=== PATIENT | male | born 1985 | race Caucasian/White ===

== ENCOUNTER 2018-11-11 11:23 | Inpatient (IN) | payer OTHER ==
[~2018-11-11] VITALS: Ht 182.9 cm; Wt 74.8 kg
[~2018-11-11 11:23] MED LIST changes: -Augmentin 875-1 EACH PO; -ERYT1OIN BOTHEYES; -Percocet 5-3251 EACH PO
[2018-11-11] MEDS ORDERED: ERYT1OIN BOTHEYES (13:54)
--- NOTE | 2018-11-11 15:45 | NUR ---
Surgical site prepped with 2% Chlorhexidine cloth wipe. History, Chart, Medications and Allergies reviewed before start of procedure. Lungs clear T/O to Auscultation. Patient confirms NPO status and agrees with scheduled surgery. Pre-Op teaching done. Pt verbalizes understanding.
--- NOTE | 2018-11-11 16:53 | NUR ---
11/11/18 1653 Clifton Aguilar PT ON SCHEDULED ANTIBIOTICS
--- NOTE | 2018-11-11 20:00 | NUR ---
RECEIVED HAND OFF FROM FARIHA WALKER IN PACU USING SBAR. TRANSPORTED TO ROOM VIA HOSPITAL BED. DROWSY, BUT FOLLOWS ALL COMMANDS. ORIENTED TO ROOM, CALL SYSTEM, AND POC, VOICES UNDERSTANDING. RESPIRATIONS EVEN AND UNLABORED ON ROOM AIR. LUNG SOUNDS CLEAR BILATERALLY. ABDOMEN FIRM WITH DISTANT, HYPOACTIVE BOWEL SOUNDS. MIDLINE INCISION COVERED WITH PREVENA DRESSING. LLQ COLOSTOMY. PINK STOMA WITH SMALL AMOUNT OF RED LIQUID IN BAG. CINTRON CATH DRAINING CLEAR YELLOW URINE TO GRAVITY. ORDER NOTED TO REMOVE BY POD # 2. LR ADMINISTERING AT 100ML/HR. SCD'S TO BLE. WILL MEDICATE PAIN OF 5/10 PER EMAR. SAFETY MEASURES IN PLACE. ADMISSION ASSESSMENT IN PROGRESS. SAFETY MEASURES IN PLACE. WILL CONTINUE TO MONITOR.
[2018-11-12 04:55] LABS: BASOPHILS ABSOLUTE AUTO 0.02 K/mm3 (0.00-0.23); BASOPHILS PERCENT AUTO 0 % (0-2); EOSINOPHILS PERCENT AUTO 0 % (0-6); Hematocrit 36.3 % (37.0-53.0); Hemoglobin 11.5 g/dL (13.5-17.5); IMMATURE GRAN ABSOLUTE AUTO 0.11 K/mm3 (0.00-0.10); IMMATURE GRAN PERCENT AUTO 1 % (0-1); LYMPHOCYTES ABSOLUTE AUTO 0.86 K/mm3 (0.84-5.20); LYMPHOCYTES PERCENT AUTO 5 % (21-46); MONOCYTES ABSOLUTE AUTO 0.56 K/mm3 (0.16-1.47); MONOCYTES PERCENT AUTO 3 % (4-13); Mean Corpuscular HGB 29.6 pg (26.0-34.0); Mean Corpuscular HGB Conc 31.7 g/dL (31.5-36.5); Mean Corpuscular Volume 94 fL (80-100); Mean Platelet Volume 11.8 fL (9.1-12.4); NEUTROPHILS ABSOLUTE AUTO 16.69 K/mm3 (1.96-9.15); NEUTROPHILS PERCENT AUTO 92 % (41-73); Platelet Count 146 K/mm3 (150-400); RDW Coefficient Variation 12.1 % (11.7-14.2); RDW Standard Deviation 41.9 fL (35.1-46.3); Red Blood Cell Count 3.88 M/mm3 (4.30-5.90); White Blood Cell Count 18.24 K/mm3 (4.00-11.30)
[2018-11-12 05:28] LABS: Anion Gap 6 mmol/L (6-16); Blood Urea Nitrogen 11 mg/dL (8-24); Bun/Creatinine Ratio 13.8 (12.0-20.0); CO2, Blood 26 mmol/L (21-32); Calcium, Blood 8.2 mg/dL (8.5-10.1); Chloride, Blood 109 mmol/L (98-108); Glomerular Filtration Rate >60 (60-); Glucose, Blood 141 mg/dL (70-99); Potassium, Blood 4.3 mmol/L (3.5-5.5); Sodium, Blood 141 mmol/L (136-145)
--- NOTE | 2018-11-12 06:26 | NUR ---
SHIFT SUMMARY HAS RESTED WELL THIS SHIFT. LYING IN SHIRA FOWLERS WITH EYES CLOSED. PAIN MANAGED. PINK STOMA WITH SMALL AMOUNT OF RED LIQUID NOTED IN OSTOMY BAG TO LLQ. CINTRON CATH DRAINAING CLEAR YELLOW URINE TO GRAVITY. STATES THAT HE IS LLOKING FORWARD TO LEARNING ABOUT HOW TO CARE FOR HIS STOMA AND START HIS NEW LIFE. DENIES NEEDS OR WANTS AT THIS TIME. SAFETY MEASURES IN PLACE. WILL GIVE HAND OFF TO ONCOMING SHIFT USING SBAR.
--- NOTE | 2018-11-12 07:45 | NUR ---
pt reports pain 05/18 to abd pt has scant amt serosang drainage to ostomy stoma is pink and moist no bt's pt stated he has belched but no nausea will get pt an is/ tcdb with demonstation pt currently on will try to wean pt [place] wound vac has no drainage
--- NOTE | 2018-11-12 13:59 | NUR ---
Spiritual care visit conducted. I provided pastoral work counselor, companionship and prayer. Patient and spouse, Sydney responded well.
--- NOTE | 2018-11-12 15:27 | NUR ---
pt oob to chair had some dizziness checked b/p wnl
--- NOTE | 2018-11-12 16:53 | NUR ---
PT STILL SITTING UP IN CHAIR REQ SOME CL
--- NOTE | 2018-11-13 06:02 | NUR ---
POD 2 S/P COLECTOMY/OSTOMY. PT VSS T/O NIGHT. DRESSING CDI. STOMA PINK W/SM AMT SS DRJENNIFER. PAIN MGD PER EMAR W/REP RELIEF. PT LOWELL CLEAR LIQ PO, NO C/O N/V, NO FLATUS YET FROM OSTOMY. PLAN TO D/C CINTRON CATH THIS AM. AMBULATION ENC, PT DOES APPEAR ANXIOUS W/DISCUSSION R/T MOBILITY, EDUCATION CONT PRN. PT SHIFTING SELF IN BED, IS USING CALL LIGHT FOR ASSISTANCE, WILL CONT TO MONITOR UNTIL REP GIVEN TO ONCOMING RN.
--- NOTE | 2018-11-13 17:55 | NUR ---
SHIFT SUMMARY PT IS ANXIOUS AND FEARFUL TO GET OUT OF BED. TOOK ALL DAY OF ENCOURAGEMENT AND POSITIVE REENFORCEMENT TO GET PATIENT TO AMBULATE IN HALLWAY. OSTOMY IS PRODUCING GAS BUT ONLY SCANT AMOUNT (2 TABLESPOONS) OF RED LQ. PAIN WELL CONTROLLED. HELEN WNL.
--- NOTE | 2018-11-14 07:53 | NUR ---
SHIFT SUMMARY POD#3. AAOX4/ANXIOUS AT TIMES. ABD INCISION WITH PREVENA C/D/I. OSTOMY WITH MODERATE AMOUNTS FLATUS THIS SHIFT, PT EDUCATED + EMPTIED OWN OSTOMY OF FLATUS. PT ENCOURAGED TO AMBULATE THIS SHIFT INDEPENDENTLY IN HALLS, AMBULATED X1 EARLY THIS AM FOR 100-150FT WALK, TOLERATED WELL. PAIN CONTROLLED WITH 2 PAIN PILLS Q4-5P. NO NAUSEA/EMESIS. PT SITTING UP THIS AM, AWAITING BREAKFAST + FAMILY VISIT. NADN. CALL LIGHT IN REACH. REPORT TO DAY SHIFT RN.
--- NOTE | 2018-11-14 08:02 | NUR ---
pt awake eating cl pt has gas in ostomy no nausea pain 05/18
--- NOTE | 2018-11-14 12:21 | NUR ---
Patient is sleeping when I enter patient's room but he quickly awakens and asks me to sit. Patient tells me how his recovery is going and about the perspective he has on living with a colostomy bag. I normalize patient's experience, reinforce helpful attitudes and practices and provide prayer. Patient responds well and shows signs of an elevated mood.
--- NOTE | 2018-11-14 15:02 | NUR ---
ostomy teaching with pt and pt's with demonstration supplies given ok to adv diet
--- NOTE | 2018-11-14 16:45 | NUR ---
dr silva by to see pt pt visiting with his family
--- NOTE | 2018-11-14 17:55 | NUR ---
pt eating dinner
--- NOTE | 2018-11-15 00:20 | NUR ---
0020: PT RESTING QUIETLY IN BED ON LEFT SIDE WITH EAR PLUGS IN. PT DENIES NEED FOR PRN PAIN MEDICATION @ THIS TIME. PT STATES NOISE FROM NEIGHBOR SHARING WALL HAS DECREASED SIGNIFICANTLY. CALL LIGHT IN REACH.
--- NOTE | 2018-11-15 00:26 | NUR ---
PT TOLERATING FULL LIQ PO.DENIES NAUSEA.OSTOMY WITH RED FLUID IN BAG. PT VERB HAS HAD FLATUS WHICH DAY RN REPORTED PT HAS BEEN BURPING. PROVENA SX INTACT. PT VERB ADEQUATE PAIN CONTROL WITH PERCOCET. VOIDING CLEAR YELLOW WITHOUT DIFF.PT AMBULATING IN DONEGAL TONIGHT.
[2018-11-15 04:45] LABS: BASOPHILS ABSOLUTE AUTO 0.03 K/mm3 (0.00-0.23); BASOPHILS PERCENT AUTO 0 % (0-2); EOSINOPHILS ABSOLUTE AUTO 0.36 K/mm3 (0.00-0.68); EOSINOPHILS PERCENT AUTO 5 % (0-6); Hematocrit 35.5 % (37.0-53.0); Hemoglobin 11.4 g/dL (13.5-17.5); IMMATURE GRAN ABSOLUTE AUTO 0.02 K/mm3 (0.00-0.10); IMMATURE GRAN PERCENT AUTO 0 % (0-1); LYMPHOCYTES ABSOLUTE AUTO 1.38 K/mm3 (0.84-5.20); LYMPHOCYTES PERCENT AUTO 18 % (21-46); MONOCYTES ABSOLUTE AUTO 0.81 K/mm3 (0.16-1.47); MONOCYTES PERCENT AUTO 11 % (4-13); Mean Corpuscular HGB 29.2 pg (26.0-34.0); Mean Corpuscular HGB Conc 32.1 g/dL (31.5-36.5); Mean Platelet Volume 10.3 fL (9.1-12.4); NEUTROPHILS ABSOLUTE AUTO 5.14 K/mm3 (1.96-9.15); NEUTROPHILS PERCENT AUTO 66 % (41-73); Platelet Count 180 K/mm3 (150-400); RDW Coefficient Variation 12.1 % (11.7-14.2); RDW Standard Deviation 40.4 fL (35.1-46.3); Red Blood Cell Count 3.91 M/mm3 (4.30-5.90); White Blood Cell Count 7.74 K/mm3 (4.00-11.30)
[2018-11-15 04:47] LABS: Mean Corpuscular Volume 91 fL (80-100)
[2018-11-15 05:07] LABS: Anion Gap 6 mmol/L (6-16); Blood Urea Nitrogen 4 mg/dL (8-24); Bun/Creatinine Ratio 4.7 (12.0-20.0); CO2, Blood 30 mmol/L (21-32); Calcium, Blood 8.5 mg/dL (8.5-10.1); Chloride, Blood 105 mmol/L (98-108); Creatinine, Blood 0.86 mg/dL (0.60-1.20); Glomerular Filtration Rate >60 (60-); Glucose, Blood 96 mg/dL (70-99); Potassium, Blood 3.9 mmol/L (3.5-5.5); Sodium, Blood 141 mmol/L (136-145)
--- NOTE | 2018-11-15 07:10 | NUR ---
SUMMARY: POD 4 SIGMOID COLLECTOMY WITH NEW COLOSTOMY BY DR. GAMEZ. VSS, AFEBRILE, VOIDING, TOLERATING FULL LIQ DIET. OSTOMY PUTTING OUT MINIMAL FLATUS WITH SMALL AMOUNT OF RED DRAINAGE; NO BM YET. PT AMBULATES DRIVER AND MOVES WELL IN ROOM INDEPENDENTLY. PAIN WELL CONTROLLED WITH 2 TABS PERCOCET AND IV TORDAL. PLAN TO ADVANCE DIET BEYOND FULL LIQ ONCE OSTOMY STARTS PUTTING OUT BM. CONTINUE TO ENCOURAGE OOB ACTIVITY AND AMBULATION.
--- NOTE | 2018-11-15 10:53 | NUR ---
OSTOMY CARE PT DENIED OSTOMY EDUCATION VIDEO AT THIS TIME D/T "FEELING TOO TIRED" BUT STATED HE WOULD WATCH IT AFTER NAPPING. HELPFUL AND ATTENTIVE WITH EMPTYING STOOL FROM OSTOMY AND RECEPTIVE TO TEACHING. 350ML OF SOFT, BROWN, UNFORMED STOOL PASSED AT THIS TIME. STOMA APPEARED BEEFY RED IN COLOR. WILL CONTINUE TO MONITOR AND OFFER EDUCATION, ALONG WITH ENCOURAGE PT INVOLVEMENT.
--- NOTE | 2018-11-15 15:59 | NUR ---
[employer] STARTER KIT ORDERED [employer] ST[employer] ONLINE. PT GAVE VERBAL PERMISSION TO DO SO.
--- NOTE | 2018-11-15 19:20 | NUR ---
SHIFT SUMMARY PT IND AMBULATING IN ROOM AND HALLWAY T/O SHIFT. OSTOMY PRODUCING STOOL. PT'S DIET ADVANCE TO LACTO/GLUTEN FREE SOFT DIET, TOLERATING WELL. VOIDING WELL. CONT. OSTOMY TEACHING AND WATCHED VIDEO WITH SPOUSE AND MOTHER. REPORTS SUPPORTIVE FAMILY TO HELP AT HOME. DENIED PAIN UNTIL THIS AFTERNOON AT WHICH TIME HE WAS MEDICATED PER ORDERS WITH IBUPROFEN. PT APPEARS ANXIOUS AND REPORTS HX OF ANXIETY BUT DOES NOT TAKE ANY MEDS.
--- NOTE | 2018-11-16 08:17 | NUR ---
SUMMARY PT SLEPT QUIETLY TONIGHT. UNEVENTFUL. APPEARING MORE RELAXED THIS AM.
[2018-11-16] MEDS ORDERED: Augmentin 875-1 EACH PO (12:12)
[2018-11-16] MEDS ORDERED: Percocet 5-3251 EACH PO (12:13)
--- NOTE | 2018-11-16 13:45 | NUR ---
DISCHARGE NOTE DISCHARGE INSTRUCTIONS GIVEN BY RN TO PT. PRINTED EDUCATION ALSO GIVEN TO PT. RX SCRIPTS SENT HOME WITH PT. OSTOMY FUNCTIONING WELL. PT REPORTS MILD PAIN CONTROLLED WITH MED. PER ORDER. PT TOLERATING FOOD AND FLUIDS. IV D/C'D WNL. PERSONAL BELONGINGS SENT HOME WITH PT. PT ESCORTED TO PERSONAL VEHICLE BY RN WITH AND OTHER FAMILY.
== END 2018-11-16 14:15 | disposition home or self-care (01) | DRG 329 ==
LOC: ER 11:23 → SURS 12:38
PROVIDERS: ADMIT Surgery
PROC: 0DBN0ZZ Excision of Sigmoid Colon, Open Approach (ICD-10-PCS; principal; 2018-11-11 15:45)
PROC: 0D1N0Z4 Bypass Sigmoid Colon to Cutaneous, Open Approach (ICD-10-PCS; 2018-11-11 15:45)
DX: K63.1 Perforation of intestine (nontraumatic) (principal); K65.9 Peritonitis, unspecified; R18.8 Other ascites; R19.8 Other specified symptoms and signs involving the digestive system and abdomen; K58.9 Irritable bowel syndrome, unspecified; K66.8 Other specified disorders of peritoneum
CPT/HCPCS: 36415; 74177; 80048; 83605; 85025; 87040; 88307; 96361; 96365-59; 96375; 99285-25; C9113; J1100; J1650; J1885; J2250; J2270; J2405; J2543; J3010; J7030; J7050; J7120; Q9967

== ENCOUNTER → 2018-11-11 | Outpatient (CLI) | payer OTHER ==
[~2018-11-11] MED LIST: ASCO500 PO; Allegra-D 24 H1 EACH PO; Augmentin 875-1 EACH PO; ERYT1OIN BOTHEYES; Flonase 0.05% N16 GM; Multivitamin1 EAC1 PO; Percocet 5-3251 EACH PO; SERT25 PO; TEMA15 PO; Zofran Odt4 MG SL
[2018-11-11 08:42] LABS: BASOPHILS ABSOLUTE AUTO 0.05 K/mm3 (0.00-0.23); BASOPHILS PERCENT AUTO 0 % (0-2); EOSINOPHILS ABSOLUTE AUTO 0.06 K/mm3 (0.00-0.68); EOSINOPHILS PERCENT AUTO 0 % (0-6); Hemoglobin 13.9 g/dL (13.5-17.5); IMMATURE GRAN ABSOLUTE AUTO 0.14 K/mm3 (0.00-0.10); IMMATURE GRAN PERCENT AUTO 1 % (0-1); LYMPHOCYTES ABSOLUTE AUTO 1.47 K/mm3 (0.84-5.20); LYMPHOCYTES PERCENT AUTO 7 % (21-46); MONOCYTES ABSOLUTE AUTO 0.92 K/mm3 (0.16-1.47); MONOCYTES PERCENT AUTO 4 % (4-13); Mean Corpuscular HGB 29.6 pg (26.0-34.0); Mean Corpuscular HGB Conc 33.1 g/dL (31.5-36.5); Mean Corpuscular Volume 89 fL (80-100); Mean Platelet Volume 11.3 fL (9.1-12.4); NEUTROPHILS ABSOLUTE AUTO 18.23 K/mm3 (1.96-9.15); NEUTROPHILS PERCENT AUTO 87 % (41-73); Platelet Count 186 K/mm3 (150-400); RDW Standard Deviation 39.6 fL (35.1-46.3); White Blood Cell Count 20.87 K/mm3 (4.00-11.30)
[2018-11-11 09:00] LABS: Alanine Aminotransfer (ALT/SGP 24 U/L (12-78); Albumin, Blood 3.6 g/dL (3.4-5.0); Alk Phos 91 U/L (40-126); Anion Gap 9 mmol/L (6-16); Aspartate Aminotrans (AST/SGOT 19 U/L (12-37); Bilirubin, Total 0.8 mg/dL (0.1-1.0); Blood Urea Nitrogen 12 mg/dL (8-24); CO2, Blood 27 mmol/L (21-32); Chloride, Blood 102 mmol/L (98-108); Creatinine, Blood 1.09 mg/dL (0.60-1.20); Globulin, Blood 3.5 g/dL (2.2-4.0); Glomerular Filtration Rate >60 (60-); Glucose, Blood 116 mg/dL (70-99); Potassium, Blood 4.2 mmol/L (3.5-5.5); Sodium, Blood 138 mmol/L (136-145); Thyroid Stimulating Hormone 1.966 uIU/mL (0.360-4.800); Total Protein, Blood 7.1 g/dL (6.4-8.2)
== END | disposition home or self-care (01) ==
LOC: LAB EV 08:35 → LAB SHORT 08:35
PROVIDERS: Physician Assistant
DX: R10.9 Unspecified abdominal pain (principal); R53.83 Other fatigue
CPT/HCPCS: 80053; 83690; 84443; 85025

== ENCOUNTER 2019-03-19 12:25 | Inpatient (IN) | payer OTHER ==
[~2019-03-19] VITALS: Ht 177.8 cm; Wt 89.5 kg
[~2019-03-19 12:25] MED LIST changes: +Augmentin 875-1 EACH PO; +ERYT1OIN BOTHEYES; +Percocet 5-3251 EACH PO
[2019-03-19] MEDS ORDERED: ZYRTEC10 M2 PO (15:04)
[2019-03-19] MEDS ORDERED: Colace100 MG PO (15:05)
--- NOTE | 2019-03-24 06:45 | NUR ---
Ambulatory in Day Surgery History, Chart, Medications and Allergies reviewed before start of procedure.Lungs clear T/O to Auscultation. Patient confirms NPO status and agrees with scheduled surgery. Patient reports completing Chlorhexadine shower X2 prior to admission to hospital.Surgical site prepped with 2% Chlorhexidine cloth wipe.REDNESS NOTED TO SKIN AROUND OSTOMY PRIOR TO PREP. PT REPORTS "STINGING" AFTER WIPING WITH THE CHLORHEXIDINE CLOTH. GENTLY CLEANSE WITH COOL WATER AND PATTED DRY. PT STATS THAT THAT "FEELS BETTER."
--- NOTE | 2019-03-24 16:16 | NUR ---
Permission Patient gave permission for care on day of 03/25/2019
--- NOTE | 2019-03-24 17:52 | NUR ---
SHIFT SUMMARY PT POD 0 COLECTOMY W/RESECTION. MIDLINE INCISION COVERED WITH PICCO DRESSING, QUARTER SIZE AREA OF SS FLUID PRESENT ON DRESSING. EPIDURAL IN PLACE, SITE AND DRESSING WNL, DERMATOME CHECKS SEE PREVIOUS DOCUMENTATION. IVF PER EMAR, ADVANCED TO CLEAR LIQUID DIET, NO N/V SINCE ARRIVING TO FLOOR.
[2019-03-25 04:06] LABS: BASOPHILS ABSOLUTE AUTO 0.02 K/mm3 (0.00-0.23); BASOPHILS PERCENT AUTO 0 % (0-2); EOSINOPHILS ABSOLUTE AUTO 0.02 K/mm3 (0.00-0.68); EOSINOPHILS PERCENT AUTO 0 % (0-6); Hematocrit 37.6 % (37.0-53.0); IMMATURE GRAN ABSOLUTE AUTO 0.03 K/mm3 (0.00-0.10); IMMATURE GRAN PERCENT AUTO 0 % (0-1); LYMPHOCYTES ABSOLUTE AUTO 2.11 K/mm3 (0.84-5.20); LYMPHOCYTES PERCENT AUTO 16 % (21-46); MONOCYTES ABSOLUTE AUTO 1.23 K/mm3 (0.16-1.47); MONOCYTES PERCENT AUTO 9 % (4-13); Mean Corpuscular HGB 28.6 pg (26.0-34.0); Mean Corpuscular HGB Conc 31.9 g/dL (31.5-36.5); Mean Corpuscular Volume 90 fL (80-100); Mean Platelet Volume 11.6 fL (9.1-12.4); NEUTROPHILS ABSOLUTE AUTO 9.79 K/mm3 (1.96-9.15); NEUTROPHILS PERCENT AUTO 74 % (41-73); Platelet Count 149 K/mm3 (150-400); RDW Coefficient Variation 12.2 % (11.7-14.2); RDW Standard Deviation 39.6 fL (35.1-46.3); Red Blood Cell Count 4.19 M/mm3 (4.30-5.90)
[2019-03-25 04:23] LABS: Anion Gap 5 mmol/L (6-16); Blood Urea Nitrogen 6 mg/dL (8-24); Bun/Creatinine Ratio 6.9 (12.0-20.0); CO2, Blood 27 mmol/L (21-32); Calcium, Blood 8.3 mg/dL (8.5-10.1); Chloride, Blood 110 mmol/L (98-108); Creatinine, Blood 0.87 mg/dL (0.60-1.20); Glomerular Filtration Rate >60 (60-); Glucose, Blood 135 mg/dL (70-99); Potassium, Blood 3.5 mmol/L (3.5-5.5); Sodium, Blood 142 mmol/L (136-145)
--- NOTE | 2019-03-25 08:13 | NUR ---
SHIFT SUMMARY: DURING THE 0500 EPIDURAL CHECK, IT WAS FOUND TO BE DISCONNECTED. THE EPIDURAL WAS KEPT CLEAN AND SECURE. DR. FLOREZ WAS CALLED WHO CAME IN AND ASSESSED THE EPIDURAL. DR. FLOREZ WAS ABLE TO RETURN THE EPIDURAL TO GOOD WORKING ORDER. FELIX REPORTED THAT HE WAS, ONCE AGAIN, ACHIEVING GOOD PAIN CONTROL. HE DID HAVE TWO EPISODES OF EMESIS THIS MORNING, 450 ML IN TOTAL. FELIX HAS MANY QUESTIONS, OFTEN ASKING THE SAME QUESTIONS REPEATEDLY. ALL OF HIS QUESTIONS WERE ANSWERED AND EDUCATION PROVIDED. STOMA BEEFY RED, DRAINING SS FLUID. MIDLINE INCISION COVERED WITH A GIULIANO WOUND VAC, PATENT WITH NO NEW DRAINAGE. HE IS ABLE TO MAKE HIS NEEDS KNOWN. CINTRON DRAINING CLEAR, PALE YELLOW URINE. IV PATENT. HE IS LYING IN BED WITH HIS CALL LIGHT IN REACH. HE DOES USE EAR PLUGS WHEN ATTEMPTING TO SLEEP.
--- NOTE | 2019-03-25 08:46 | NUR ---
EPIDURAL CATHETER REPLACED BY DR. ROMEO THIS AM, PT RESTING IN BED APPEARS TO BE COMFORTABLE, CONT. TO MONITOR FOR ANY CHANGES.
--- NOTE | 2019-03-25 18:07 | NUR ---
OOB TO RECLINER CHAIR, CONTINUES TO HAVE N/V BUT STATES ZOFRAN IS HELPING, SCOPOLAMINE PATCH IN PLACE, RATES PAIN AT 4-5/10, EPIDURAL CATH INTACT, ENOURAGED TO AMBULATE WITH ASSIST TODAY BUT PT REFUSED, STATES HE'S "TOO NAUSEOUS" TO WALK, ABD DSG C/D/I, OSTOMY APPLIANCE INTACT, NO ACUTE CHANGES THIS SHIFT.
--- NOTE | 2019-03-25 20:25 | NUR ---
PT REP MILD NUMBNESS TO LEFT SIDE OF ABD. PT COT TO STRUGGLE W/NAUSEA, EPIDURAL TITRATED DOWN TO 7ML/HR PER PT REQ. WILL MONITOR EFFECTS
--- NOTE | 2019-03-26 05:53 | NUR ---
POD 2 S/P COLECTOMY+RESECTION. PT VSS T/O NIGHT. PT STRUGGLED W/NAUSEA EARLY IN SHIFT, AND AGAIN THIS AM. EPIDURAL TITRATED DOWN TO 6ML/HR PER TITRATION ORDERS. PT REP PAIN "MILD" DURG DRESSING INTACT W/NO NEW DRNG, SEAL AND SX MAINTAINED. EPIDURAL SITE WNL. NO OUTPUT FROM OSTOMY. PT ANXIOUS AT TIMES, SUPPORT AND EDUCATION CONT PRN. PT USING CALL LIGHT FOR ASSISTANCE, WILL CONT TO MONITOR UNTIL REP GIVEN TO DAY RN.
--- NOTE | 2019-03-26 11:35 | NUR ---
DR CORRAL IN TO SEE PATIENT; EPIDURAL D/C'D PER PATIENT WISHES. CALL OUT TO DR GAMEZ FOR PAIN MED ORDERS.
--- NOTE | 2019-03-26 18:23 | NUR ---
SHIFT SUMMARY PATIENT HAS CONT TO C/O NAUSEA AT TIMES TODAY, SOME EMESIS. PHENERGAN 12.5MG IV ADMIN PER NEW ORDER. PATIENT STATES HE FEELS SOMEWHAT BETTER, DOZING NOW WHEN NOT DISTURBED. PAIN CONTROLLED PER PATIENT WITH MINIMAL IV PAIN MED. GIULIANO DRAIN INTACT, GOOD SEAL. OSTOMY APPLIANCE REINFORCED AT UPPER EDGE; NO OUTPUT, +FLATUS. IN MOST OF SHIFT. NO ACUTE CHANGES OR C/O AT THIS TIME. WILL PASS ON TO NOC SHIFT RE: FC D/C, LOVENOX, UP OOB.
--- NOTE | 2019-03-27 07:47 | NUR ---
POD 3 S/P COLECTOMY REVISION W/RESECTION. PT VSS T/O NIGHT, GIULIANO DRESSING INTACT W/NO NEW DRNG, SEAL AND SX MAINTAINED. PT REP MILD NAUSEA, MEDICATED PER EMAR W/SOME RELIEF, NO EMESIS. OSTOMY PUTTING OUT SMALL AMT LIQ BROWN STOOL+GAS. PT VOIDING URINE W/O DIFFICULTY. PT REMAINS ANXIOUS, PT HESITANT TO AMBULATE, NEEDING ONGOING EDUCATION AND MOTIVATION. PT UP IN CHAIR THIS AM. REP GIVEN TO DAY RN.
--- NOTE | 2019-03-27 19:29 | NUR ---
SHIFT SUMMARY PATIENT STATES HE HAD A BETTER DAY TODAY. MINIMAL NAUSEA, CONTROLLED WITH IV ZOFRAN. PAIN CONTROLLED WITH 1/2 TAB PERCOCET. TAKING FL. NO EMESIS. OSTOMY WITH BROWN THIN STOOL OUTPUT; PATIENT DID CARE. GIULIANO DRAIN INTACT. PATIENT UP TO AMBULATE IN DRIVER X 2. PLAN FOR D/C HOME TOMORROW. NO ACUTE CHANGES OR C/O.
--- NOTE | 2019-03-28 05:10 | NUR ---
SHIFT SUMMARY A/O WITH VSS AND NO ACUTE CHANGES T/O SHIFT. OSTOMY APPLIANCE C/D/I. OSTOMY DRAINING BROWN LIQUID; PT ABLE TO PROVIDE OWN OSTOMY CARE. GIULIANO C/D/I W/NO NEW DRAINAGE NOTED. MEDICATED ONCE W/IV ZOFRAN FOR NAUSEA. PAIN MANAGED WITH 1 TAB PO MEDICATION ONCE DURING SHIFT. IS IND IN ROOM. CURRENTLY RESTING IN BED WITH CALL LIGHT IN REACH. WILL CONT TO MONITOR AND GIVE REPORT TO ONCOMING RN.
--- NOTE | 2019-03-28 17:54 | NUR ---
SHIFT SUMMARY PT EATING AND DRINKING. PT BEEN UP AND AMBULATING IN HALLWAY WITH . PT BEEN ASSISTED WITH ADL'S PRN. PT BEEN VOIDING AND EMPTYING OSTOMY BAG. PT HAD SHOWER TODAY. DR GAMEZ WAS IN AND HAS SEEN PT EARLIER TODAY.
--- NOTE | 2019-03-28 19:23 | NUR ---
PT AMBULATED IN HALLWAY X3 TODAY WITH WALKER AND FAMILY.
--- NOTE | 2019-03-29 05:33 | NUR ---
SHIFT SUMMARY: FELIX RESTED FOR A FEW HOURS LATE IN THE SHIFT. HE DID HAVE ONE EPISODE OF EMESIS AROUND MIDNIGHT. HE WAS ENCOURAGED TO TAKE THE ZOFRAN BEFORE TAKING PAIN MEDICATION SINCE HE REPORTED THAT HE THINKS THE N/V IS RELATED TO THE PAIN MEDICATION. HE DID AMBULATE DOWN THE DRIVER BEFORE TURNING IN FOR THE NIGHT. HE IS URINATING WITHOUT DIFFIULTY. HIS STOMA HAS MINIMAL SS OUTPUT AND A SMALL AMOUNT OF MUCUS. GIULIANO PATENT. VSS. HE IS ABLE TO MAKE HIS NEEDS KNOWN. HE IS INDEPENDENT TO THE BATHROOM AND FOR AMBULATION. HE IS LYING COMFORTABLY IN BED WITH HIS CALL LIGHT IN REACH. HE USES HIS CALL LIGHT APPROPRIATLEY.
--- NOTE | 2019-03-29 14:03 | NUR ---
DR GAMEZ HERE TO SEE PT.
--- NOTE | 2019-03-29 15:15 | NUR ---
DISCUSSED WITH PT HOTEL HOUSEMAN ASSISTING WITH PAPERWORK, PT REPORTS WILL CONTACT .
[2019-03-29] MEDS ORDERED: ONDA4ODT SL (15:40)
[2019-03-29] MEDS ORDERED: Percocet 5-3251 EACH PO (15:40)
[2019-03-29] MEDS ORDERED: OMEP20ER PO (15:47)
--- NOTE | 2019-03-29 15:47 | NUR ---
PT EDUCATED PAPERWORK COMPLETE. PT WISHING TO STAY FOR DINNER, DISCUSSED WITH PT THAT HIS NORMAL DIET AT HOME WOULD PROBABLY SETTLE ON HIS STOMACH BETTER AND THAT DINNER WOULD NOT BE UNTIL 5:30 PM.
--- NOTE | 2019-03-29 16:30 | NUR ---
PT MED WITH ZOFRAN HE REQ PAIN MEDICATION BEFORE GOING HOME AND REQ TO HAVE ZOFRAN 1/2 HOUR BEFORE PAIN MED THAT HAS BEEN WORKING BETTER THAN TAKING THEM AT THE SAME TIME (ZOFRAN AND PERCOCET).
--- NOTE | 2019-03-29 17:28 | NUR ---
HERE. PT IV D/C'D. PT MED FOR PAIN PER REQ. PT/FAMILY REPORTS UNDERSTANDING OF DISCHARGE INSTRUCTIONS. PT/FAMILY REQ TO HAVE LAST TIME PT WAS MEDICATED WRITTEN ON DISCHARGE INSTRUCTIONS. PT GIVEN SUPPLIES FOR OSTOMY CHANGES WHICH HAVE BEEN PLACED IN WITH PT'S BELONGINGS. SCRIPT IN WITH DISCHARGE PAPERWORK. PT TAKING DOWN PT'S BELONGINGS TO CAR AND GOING TO GET SCRIPT FILLED AND COME BACK TO GET PT HE "IS STARVING AND WANTS TO EAT DINNER HERE" PER HIS .
--- NOTE | 2019-03-29 17:55 | NUR ---
PT HAD 12OO EMESIS. DR NOTIFIED, REPORTS TO CONT WITH DISCHARGE PT WILL HAVE OWN DIET AT HOME AND HAS BEEN ABLE TO EAT BREAKFEAST AND LUNCH WITHOUT EMESIS.
--- NOTE | 2019-03-29 18:20 | NUR ---
PT UNABLE TO OBTAIN PRESCRIPTIONS BEFORE PHARMACY CLOSED. PT REPORTS NOT HAVING ZOFRAN AT HOME. PT AND CONCERNED OF PT HAVING EMESIS AT HOME WITHOUT ZOFRAN. DR TAMAYO. REPORTS PT TO STAY OVERNIGHT AND MAY BE DISCHARGED IN AM.
--- NOTE | 2019-03-30 05:59 | NUR ---
SHIFT SUMMARY: FELIX RESTED COMFORTABLY DURING MOST OF THE SHIFT. HE IS INDEPENDENT IN THE ROOM. HE WAS TO BE DISCHARGED YESTERDAY, BUT WAS UNABLE TO GET PRESCRIPTIONS AND WANTED TO STAY. HE HAS TAKEN ONE PERCOCET THIS SHIFT. HE FEELS THAT IT IS CAUSING THE NAUSEA AND DID NOT WANT TO TAKE ANOTHER TABLET. HE IS HAVING LIQUID STOOL OUTPUT THROUGH HIS STOMA, STOMA IS BEEFY RED. HE DID HAVE ONE EPISODE OF EMESIS THIS SHIFT. HE IS LYING IN BED WITH THE CALL LIGHT IN REACH. HIS IS PLANNING TO [employer]OL HAT FINISHER HIS PRESCRIPTION THIS MORNING, WILL DC UPON 'S RETURN.
--- NOTE | 2019-03-30 11:14 | NUR ---
DISCHARGE PT REPORED HE WAS PROVIDED WITH DISCHARGE INSTRUCTIONS YESTERDAY, AND HIS WAS ABLE TO CARE PROVIDER HIS PRESCRIPTIONS. PT WAS PROVIDED WITH OSTOMY SUPPLIES. PT ESCORTED OUT IN W/C BY MAHAD VALADEZ AT 1115.
== END 2019-03-30 11:15 | disposition home or self-care (01) | DRG 334 ==
LOC: SURS 03-24 05:50 → PRE IP 03-24 07:30 → SURS 03-24 13:25
PROVIDERS: ADMIT Surgery
PROC: 0DJD8ZZ Inspection of Lower Intestinal Tract, Via Natural or Artificial Opening Endoscopic (ICD-10-PCS; 2019-03-23)
PROC: 0DTP0ZZ Resection of Rectum, Open Approach (ICD-10-PCS; principal; 2019-03-24 07:30)
DX: Z43.3 Encounter for attention to colostomy (principal); K62.4 Stenosis of anus and rectum; Z90.49 Acquired absence of other specified parts of digestive tract
CPT/HCPCS: 36415; 80048; 85025; 88304; J1100; J1170; J1650; J1885; J2250; J2370; J2405; J2543; J2550; J2704; J3010; J7120

== ENCOUNTER 2019-03-23 10:25 | Day surgery (SDC) | payer OTHER ==
[~2019-03-23] VITALS: Ht 180.3 cm; Wt 90.1 kg
[~2019-03-23 10:25] MED LIST changes: +Colace100 MG PO; +ZYRTEC10 M2 PO
--- NOTE | 2019-03-23 11:04 | NUR ---
History, Chart, Medications and Allergies reviewed before start of procedure. Patient confirms NPO status and agrees with scheduled surgery. Reports taking all of colon prep with clear results.
--- NOTE | 2019-03-23 12:32 | NUR ---
03/23/19 1232 Imelda Melgar PATIENT DETERMINED TO BE ASA APPROPRIATE FOR PROPOFOL SEDATION PRIOR TO START OF PROCEDURE BY DR. GAMEZ. 3-LEAD EKG REVIEWED WITH PHYSICIAN PRIOR TO START OF PROCEDURE. PATIENT CONFIRMS NPO STATUS AND AGREES WITH SCHEDULED PROCEDURE. History, Chart, Medications and Allergies reviewed before start of procedure. MONITOR INTACT WITH CONTINUOUS PULSE OXIMETRY AND INTERMITTENT BP. O2 VIA N/C INTACT THROUGHOUT SEDATION/PROCEDURE, 3L.
== END 2019-03-23 13:48 | disposition home or self-care (01) ==
LOC: ORSCMMR 10:25 → ORD 12:00 → ORSCMMR 13:48
PROVIDERS: Surgery
PROC: 0DJD8ZZ Inspection of Lower Intestinal Tract, Via Natural or Artificial Opening Endoscopic (ICD-10-PCS; principal; 2019-03-23 12:00)
DX: Z93.3 Colostomy status (principal); K62.4 Stenosis of anus and rectum; F41.9 Anxiety disorder, unspecified
CPT/HCPCS: J2704; J7120

== ENCOUNTER → 2019-07-28 | Outpatient (CLI) | payer OTHER ==
[~2019-07-28] MED LIST changes: +OMEP20ER PO; +ONDA4ODT SL
== END | disposition home or self-care (01) ==
LOC: LAB SHORT 17:42 → LAB 17:42
DX: N41.9 Inflammatory disease of prostate, unspecified (principal)
CPT/HCPCS: 87086

== ENCOUNTER 2019-11-17 06:48 | Observation (INO) | payer OTHER ==
[~2019-11-17] VITALS: Ht 177.8 cm; Wt 86.2 kg
[2019-11-17 07:48] LABS: Source, Urine Clean Catch
[2019-11-17 07:56] LABS: Appearance, Urine Clear (Clear); BASOPHILS ABSOLUTE AUTO 0.06 K/mm3 (0.00-0.23); BASOPHILS PERCENT AUTO 1 % (0-2); Bilirubin, Urine Neg (Neg); Color, Urine Yellow (P-Yellow); EOSINOPHILS ABSOLUTE AUTO 0.13 K/mm3 (0.00-0.68); EOSINOPHILS PERCENT AUTO 1 % (0-6); Glucose Qualitative, Urine Neg (Neg); Hematocrit 42.6 % (37.0-53.0); Hemoglobin 13.4 g/dL (13.5-17.5); IMMATURE GRAN ABSOLUTE AUTO 0.02 K/mm3 (0.00-0.10); IMMATURE GRAN PERCENT AUTO 0 % (0-1); Ketones, Urine Neg (Neg); LYMPHOCYTES ABSOLUTE AUTO 2.54 K/mm3 (0.84-5.20); LYMPHOCYTES PERCENT AUTO 26 % (21-46); Leukocyte Esterase, Urine Neg (Neg); MONOCYTES ABSOLUTE AUTO 1.03 K/mm3 (0.16-1.47); MONOCYTES PERCENT AUTO 11 % (4-13); Mean Corpuscular HGB Conc 31.5 g/dL (31.5-36.5); Mean Corpuscular Volume 92 fL (80-100); Mean Platelet Volume 10.9 fL (9.1-12.4); NEUTROPHILS ABSOLUTE AUTO 5.91 K/mm3 (1.96-9.15); NEUTROPHILS PERCENT AUTO 61 % (41-73); Nitrite, Urine Neg (Neg); Platelet Count 164 K/mm3 (150-400); Protein, Urine Neg (Neg); RDW Coefficient Variation 11.9 % (11.7-14.2); RDW Standard Deviation 40.6 fL (35.1-46.3); Red Blood Cell Count 4.62 M/mm3 (4.30-5.90); Urobilinogen, Urine NORM (Normal); White Blood Cell Count 9.69 K/mm3 (4.00-11.30)
[2019-11-17 08:00] LABS: Blood, Urine 1+ (Neg)
[2019-11-17] MEDS ORDERED: ZOLOFT50 MG PO (08:09)
[2019-11-17 08:11] LABS: Bacteria Not Seen /hpf; Red Blood Cells, Urine 0-2 /hpf (0-2); Squamous Epithelial Cells Not Seen /hpf (Few); White Blood Cells, Urine 0-2 /hpf (0-5)
[2019-11-17 08:13] LABS: Alanine Aminotransfer (ALT/SGP 35 U/L (12-78); Albumin/Globulin Ratio 1.1 (0.8-1.8); Alk Phos 94 U/L (50-136); Anion Gap 4 mmol/L (6-16); Aspartate Aminotrans (AST/SGOT 39 U/L (12-37); Bilirubin, Total 0.6 mg/dL (0.1-1.0); Blood Urea Nitrogen 10 mg/dL (8-24); Bun/Creatinine Ratio 9.4 (12.0-20.0); CO2, Blood 28 mmol/L (21-32); Chloride, Blood 107 mmol/L (98-108); Creatinine, Blood 1.06 mg/dL (0.60-1.20); Globulin, Blood 3.6 g/dL (2.2-4.0); Glomerular Filtration Rate >60 (60-); Glucose, Blood 94 mg/dL (70-99); Potassium, Blood 3.5 mmol/L (3.5-5.5); Sodium, Blood 139 mmol/L (136-145); Total Protein, Blood 7.6 g/dL (6.4-8.2)
[2019-11-17 08:14] LABS: U Amphetamine Screen Not Detected; U Barbituate Screen Not Detected; U Benzodiazapine Screen Not Detected; U Buprenorphine Screen Not Detected; U Cannabinoids Screen Not Detected; U Cocaine Screen Not Detected; U Methadone Screen Not Detected; U Methamphetamine Screen Not Detected; U Opiates Screen Not Detected; U Oxycodone Screen Not Detected; U Phencyclidine Screen Not Detected; U Propoxyphene Screen Not Detected
[2019-11-17 08:16] LABS: Ethanol (Alcohol), Blood, Med <3 mg/dL
[2019-11-17] MEDS ORDERED: IMPOYZ60 GM TOP (08:32)
--- NOTE | 2019-11-18 04:30 | NUR ---
[employer] SUMMARY ALERT AND ORIENTED, COOPERATIVE WITH CARE. FLAT AFFECT, DENIES SUICIDAL IDEATION. APPEARED TO SLEEP MOST OF THE NIGHT. NO ACUTE DISTRESS NOTED. VSS. BED IN LOWEST POSITION WITH CALL LIGHT IN REACH. WILL CONTINUE TO MONITOR AND REPORT TO ONCOMING RN.
[2019-11-18] MEDS ORDERED: MELATONIN5 M1 PO (09:56)
--- NOTE | 2019-11-18 14:21 | NUR ---
DISCHARGE DISCHARGE MEDICATIONS AND INSTRUCTIONS EXPLAINED TO PATIENT. PATIENT STATED UNDERSTANDING. PCP FOLLOW UP SCHEDULED FOR TOMORROW. BELONGINGS WITH PATIENT. PATIENT AMBULATED TO PRIVATE VEHICLE WITH STAFF ESCORT.
== END 2019-11-18 13:25 | disposition home or self-care (01) ==
LOC: ER 06:48 → MEDS 06:49 → EOR 06:49 → MEDS 20:10
PROVIDERS: Emergency Medicine; ADMIT Emergency Medicine
DX: F32.3 Major depressive disorder, single episode, severe with psychotic features (principal); K58.9 Irritable bowel syndrome, unspecified; V89.2XXA Person injured in unspecified motor-vehicle accident, traffic, initial encounter; Z93.3 Colostomy status; Z88.5 Allergy status to narcotic agent; Z79.899 Other long term (current) drug therapy
CPT/HCPCS: 36415; 70450; 80053; 81001; 85025; 99285-25; G0378; G0480; J2060; J3486; Q3014

== ENCOUNTER 2019-11-20 18:10 | Emergency (ER) | payer OTHER ==
[~2019-11-20] VITALS: Ht 180.3 cm; Wt 81.7 kg
[~2019-11-20 18:10] MED LIST changes: +IMPOYZ60 GM TOP; +MELATONIN5 M1 PO; +ZOLOFT50 MG PO
== END 2019-11-20 20:36 | disposition home or self-care (01) ==
LOC: ER 18:10
DX: F32.9 Major depressive disorder, single episode, unspecified (principal); R51 Headache; R55 Syncope and collapse; Z87.828 Personal history of other (healed) physical injury and trauma; Z88.6 Allergy status to analgesic agent; Z88.5 Allergy status to narcotic agent; Z79.899 Other long term (current) drug therapy
CPT/HCPCS: 99283

== ENCOUNTER 2019-11-22 20:40 | Observation (INO) | payer OTHER ==
[~2019-11-22] VITALS: Ht 180.3 cm; Wt 72.6 kg
[2019-11-22] MEDS ORDERED: ABILIFY5 MG PO (21:34)
[2019-11-22] MEDS ORDERED: Zyprexa Zydis5 MG SL (21:35)
[2019-11-22] MEDS ORDERED: TAMSULOSIN HCL0.4 M1 PO (21:35)
[2019-11-22] MEDS ORDERED: FLUT.05NI (21:36)
[2019-11-22] MEDS ORDERED: SERT25 PO (21:36)
[2019-11-22 22:00] LABS: BASOPHILS ABSOLUTE AUTO 0.05 K/mm3 (0.00-0.23); BASOPHILS PERCENT AUTO 0 % (0-2); EOSINOPHILS ABSOLUTE AUTO 0.06 K/mm3 (0.00-0.68); EOSINOPHILS PERCENT AUTO 1 % (0-6); Hematocrit 41.3 % (37.0-53.0); Hemoglobin 13.5 g/dL (13.5-17.5); IMMATURE GRAN ABSOLUTE AUTO 0.04 K/mm3 (0.00-0.10); IMMATURE GRAN PERCENT AUTO 0 % (0-1); LYMPHOCYTES ABSOLUTE AUTO 1.21 K/mm3 (0.84-5.20); LYMPHOCYTES PERCENT AUTO 10 % (21-46); MONOCYTES ABSOLUTE AUTO 0.91 K/mm3 (0.16-1.47); MONOCYTES PERCENT AUTO 8 % (4-13); Mean Corpuscular HGB 29.6 pg (26.0-34.0); Mean Corpuscular HGB Conc 32.7 g/dL (31.5-36.5); Mean Corpuscular Volume 91 fL (80-100); Mean Platelet Volume 10.9 fL (9.1-12.4); NEUTROPHILS ABSOLUTE AUTO 9.71 K/mm3 (1.96-9.15); NEUTROPHILS PERCENT AUTO 81 % (41-73); Platelet Count 192 K/mm3 (150-400); RDW Coefficient Variation 11.9 % (11.7-14.2); RDW Standard Deviation 39.7 fL (35.1-46.3); Red Blood Cell Count 4.56 M/mm3 (4.30-5.90); White Blood Cell Count 11.98 K/mm3 (4.00-11.30)
[2019-11-22 22:29] LABS: Alanine Aminotransfer (ALT/SGP 42 U/L (12-78); Albumin/Globulin Ratio 1.2 (0.8-1.8); Alk Phos 102 U/L (50-136); Anion Gap 6 mmol/L (6-16); Aspartate Aminotrans (AST/SGOT 36 U/L (12-37); Bilirubin, Total 0.3 mg/dL (0.1-1.0); Blood Urea Nitrogen 11 mg/dL (8-24); Bun/Creatinine Ratio 10.4 (12.0-20.0); CO2, Blood 26 mmol/L (21-32); Calcium, Blood 9.3 mg/dL (8.5-10.1); Chloride, Blood 106 mmol/L (98-108); Creatinine, Blood 1.06 mg/dL (0.60-1.20); Ethanol (Alcohol), Blood, Med <3 mg/dL; Free Thyroxine 1.34 ng/dL (0.70-1.60); Globulin, Blood 3.4 g/dL (2.2-4.0); Glomerular Filtration Rate >60 (60-); Glucose, Blood 109 mg/dL (70-99); Potassium, Blood 3.9 mmol/L (3.5-5.5); Salicylate <1.7 mg/dL (2.8-20.0); Sodium, Blood 138 mmol/L (136-145); Total Protein, Blood 7.4 g/dL (6.4-8.2)
[2019-11-22 22:30] LABS: Acetaminophen, Random <2.0 ug/mL (10.0-30.0)
[2019-11-22 23:02] LABS: Source, Urine Clean Catch
[2019-11-22 23:05] LABS: Appearance, Urine Clear (Clear); Bilirubin, Urine Neg (Neg); Blood, Urine 1+ (Neg); Color, Urine Yellow (P-Yellow); Glucose Qualitative, Urine Neg (Neg); Ketones, Urine Neg (Neg); Leukocyte Esterase, Urine Neg (Neg); Nitrite, Urine Neg (Neg); Protein, Urine Neg (Neg); Specific Gravity, Urine 1.005 (1.003-1.022); Urobilinogen, Urine NORM (Normal)
[2019-11-22 23:11] LABS: Bacteria Few /hpf; Red Blood Cells, Urine 0-2 /hpf (0-2); Squamous Epithelial Cells Not Seen /hpf (Few); White Blood Cells, Urine 0-2 /hpf (0-5)
[2019-11-22 23:15] LABS: U Amphetamine Screen Not Detected; U Barbituate Screen Not Detected; U Benzodiazapine Screen Not Detected; U Buprenorphine Screen Not Detected; U Cannabinoids Screen Not Detected; U Cocaine Screen Not Detected; U Methadone Screen Not Detected; U Methamphetamine Screen Not Detected; U Opiates Screen Not Detected; U Oxycodone Screen Not Detected; U Phencyclidine Screen Not Detected; U Propoxyphene Screen Not Detected
== END 2019-11-24 19:04 | disposition home or self-care (01) ==
LOC: ER 20:40 → EOR 20:41
PROVIDERS: ADMIT Emergency Medicine
DX: F23 Brief psychotic disorder (principal); Z20.828 Contact with and (suspected) exposure to other viral communicable diseases; Z88.5 Allergy status to narcotic agent; Z88.6 Allergy status to analgesic agent; Z79.899 Other long term (current) drug therapy
CPT/HCPCS: 36415; 80053; 81001; 84439; 84443; 85025; 93005; 93010; 96372; 99285-25; G0378; G0480; J3486; U0002

== ENCOUNTER 2023-01-20 21:52 | Inpatient (IN) | payer OTHER ==
[~2023-01-20] VITALS: Ht 175.3 cm; Wt 99.8 kg
[~2023-01-20 21:52] MED LIST changes: +ABILIFY5 MG PO; +FLUT.05NI; +TAMSULOSIN HCL0.4 M1 PO; +Zyprexa Zydis5 MG SL
[2023-01-20 22:23] LABS: BASOPHILS ABSOLUTE AUTO 0.05 K/mm3 (0.00-0.23); BASOPHILS PERCENT AUTO 0 % (0-2); EOSINOPHILS ABSOLUTE AUTO 0.04 K/mm3 (0.00-0.68); EOSINOPHILS PERCENT AUTO 0 % (0-6); Hematocrit 46.1 % (37.0-53.0); Hemoglobin 15.4 g/dL (13.5-17.5); IMMATURE GRAN ABSOLUTE AUTO 0.08 K/mm3 (0.00-0.10); IMMATURE GRAN PERCENT AUTO 0 % (0-1); LYMPHOCYTES ABSOLUTE AUTO 1.36 K/mm3 (0.84-5.20); LYMPHOCYTES PERCENT AUTO 6 % (21-46); MONOCYTES ABSOLUTE AUTO 0.88 K/mm3 (0.16-1.47); MONOCYTES PERCENT AUTO 4 % (4-13); Mean Corpuscular HGB 28.1 pg (26.0-34.0); Mean Corpuscular HGB Conc 33.4 g/dL (31.5-36.5); Mean Corpuscular Volume 84 fL (80-100); Mean Platelet Volume 10.3 fL (9.1-12.4); NEUTROPHILS ABSOLUTE AUTO 19.01 K/mm3 (1.96-9.15); NEUTROPHILS PERCENT AUTO 89 % (41-73); Platelet Count 285 K/mm3 (150-400); RDW Coefficient Variation 12.5 % (11.7-14.2); RDW Standard Deviation 38.5 fL (35.1-46.3); Red Blood Cell Count 5.49 M/mm3 (4.30-5.90); White Blood Cell Count 21.42 K/mm3 (4.00-11.30)
[2023-01-20] MEDS ORDERED: FAMO20 PO (22:25)
[2023-01-20] MEDS ORDERED: OXYB5 PO (22:26)
[2023-01-20] MEDS ORDERED: Colace100 MG PO (22:28)
[2023-01-20 22:44] LABS: Albumin/Globulin Ratio 1.1 (0.8-1.8); Bilirubin, Total 0.8 mg/dL (0.1-1.0); Bun/Creatinine Ratio 21.6 (12.0-20.0); Calcium, Blood 8.9 mg/dL (8.5-10.1); Creatinine, Blood 0.88 mg/dL (0.60-1.20); Globulin, Blood 3.8 g/dL (2.2-4.0); Potassium, Blood 4.3 mmol/L (3.5-5.5); Total Protein, Blood 7.8 g/dL (6.4-8.2)
[2023-01-21 01:48] LABS: Source, Urine Clean Catch
[2023-01-21 01:57] LABS: Blood, Urine 2+ (Neg); Glucose Qualitative, Urine Neg (Neg); Ketones, Urine 3+ (Neg); Leukocyte Esterase, Urine 1+ (Neg); Nitrite, Urine Neg (Neg); Protein, Urine 2+ (Neg); Specific Gravity, Urine 1.025 (1.003-1.022); Urobilinogen, Urine 4+ (Normal)
[2023-01-21 02:14] LABS: Bilirubin, Urine 2+ (Neg)
[2023-01-21 02:17] LABS: Appearance, Urine Hazy (Clear); Color, Urine Amber (P-Yellow)
[2023-01-21 02:18] LABS: Bacteria Rare /hpf; Calcium Oxalate Crystals Many /hpf; Red Blood Cells, Urine 0-2 /hpf (0-2); Squamous Epithelial Cells Few /hpf (Few); White Blood Cells, Urine 0-2 /hpf (0-5)
--- NOTE | 2023-01-21 06:28 | NUR ---
ADMIT NOTE GOT REPORT FROM FARIHA ARTEAGA AT 0443. PT ARRIVED TO MEDICAL FLOOR AT 0550. PT HAS OSTOMY THAT WAS CHANGED IN THE ED. PPT STS HE IS TIRED AND WOULD LIKE TO SLEEP. PT HAS NS RUNNING AT 125/HR. CALL LIGHT IS WITHIN HIS REACH. PT CAN BE SLOW TO ANSWER AT TIMES.
[2023-01-21 07:52] VITALS: BP 112/74
[2023-01-21 10:47] LABS: Adenovirus F 40/41 Not Detected (NOT DETECT); Astrovirus Not Detected (NOT DETECT); Campylobacter Sp Not Detected (NOT DETECT); Cryptosporidium Not Detected (NOT DETECT); Cyclospora Cayetanensis Not Detected (NOT DETECT); E. Coli O157 Not Detected (NOT DETECT); Entamoeba Histolytica Not Detected (NOT DETECT); Enteroaggregative E. coli-EAEC Not Detected (NOT DETECT); Enteropathogenic E. coli-EPEC Detected (NOT DETECT); Enterotoxigenic E. coli-ETEC Not Detected (NOT DETECT); Giardia Lamblia Not Detected (NOT DETECT); Norovirus GI/GII Not Detected (NOT DETECT); Plesiomonas Shigelloides Not Detected (NOT DETECT); Rotavirus A Not Detected (NOT DETECT); Salmonella Sp Not Detected (NOT DETECT); Sapovirus Not Detected (NOT DETECT); Shiga Toxin-prod E. coli-STEC Not Detected (NOT DETECT); Shigella/Enteroin E. coli-EIEC Not Detected (NOT DETECT); Vibrio Cholerae Not Detected (NOT DETECT); Vibrio Sp Not Detected (NOT DETECT); Yersinia Enterocolitica Not Detected (NOT DETECT)
[2023-01-21 15:22] VITALS: BP 112/81
--- NOTE | 2023-01-21 17:42 | NUR ---
SHIFT SUMMARY: Pt A&Ox3 this shift. VSS. Denies pain. IV Zofran effective. Watery stool noted, pt states bm not as frequent this pm. Pt empties colostomy independently. Tolerating meals and fluids. No further needs id or verbalized. Will continue to monitor.
[2023-01-21 19:34] VITALS: BP 105/66
[2023-01-22 04:09] VITALS: BP 97/57
--- NOTE | 2023-01-22 04:38 | NUR ---
SHIFT SUMMARY 37 YR M ADMITTED ON 01/21/23 FOR CDIF. FULL CODE. NO ACUTE CHANGES THIS SHIFT. PT IS PLEASANT AND COOPERATIVE BUT HAS A VERY FLAT AFFECT. HE C/O NAUSEA AT APPROX 0400 BUT DECIDED TO SAVE THE ZOFRAN FOR BEFORE BREAKFAST. NS INFUSING @ 125 BUT BP WAS SOFT THIS A.M. SO RATE WAS BUMPED UP TO 250. NO C/O PAIN THIS SHIFT. BED IN LOW POSITION AND CALL LIGHT IN REACH.
[2023-01-22 05:35] LABS: BASOPHILS ABSOLUTE AUTO 0.02 K/mm3 (0.00-0.23); BASOPHILS PERCENT AUTO 0 % (0-2); EOSINOPHILS ABSOLUTE AUTO 0.24 K/mm3 (0.00-0.68); EOSINOPHILS PERCENT AUTO 2 % (0-6); Hematocrit 35.3 % (37.0-53.0); Hemoglobin 11.4 g/dL (13.5-17.5); IMMATURE GRAN ABSOLUTE AUTO 0.02 K/mm3 (0.00-0.10); IMMATURE GRAN PERCENT AUTO 0 % (0-1); LYMPHOCYTES ABSOLUTE AUTO 1.95 K/mm3 (0.84-5.20); LYMPHOCYTES PERCENT AUTO 19 % (21-46); MONOCYTES ABSOLUTE AUTO 0.99 K/mm3 (0.16-1.47); MONOCYTES PERCENT AUTO 10 % (4-13); Mean Corpuscular HGB 27.6 pg (26.0-34.0); Mean Corpuscular HGB Conc 32.3 g/dL (31.5-36.5); Mean Corpuscular Volume 86 fL (80-100); Mean Platelet Volume 10.6 fL (9.1-12.4); NEUTROPHILS ABSOLUTE AUTO 7.02 K/mm3 (1.96-9.15); NEUTROPHILS PERCENT AUTO 69 % (41-73); Platelet Count 167 K/mm3 (150-400); RDW Coefficient Variation 12.9 % (11.7-14.2); RDW Standard Deviation 39.7 fL (35.1-46.3); Red Blood Cell Count 4.13 M/mm3 (4.30-5.90); White Blood Cell Count 10.24 K/mm3 (4.00-11.30)
[2023-01-22 06:00] LABS: Albumin, Blood 2.3 g/dL (3.4-5.0); Anion Gap 3 mmol/L (6-16); Blood Urea Nitrogen 9 mg/dL (8-24); Bun/Creatinine Ratio 10.2 (12.0-20.0); CO2, Blood 25 mmol/L (21-32); Calcium, Blood 7.5 mg/dL (8.5-10.1); Chloride, Blood 110 mmol/L (98-108); Creatinine, Blood 0.88 mg/dL (0.60-1.20); Glomerular Filtration Rate 114 (60-); Glucose, Blood 103 mg/dL (70-99); Phosphorus, Blood 1.5 mg/dL (2.5-4.9); Potassium, Blood 3.8 mmol/L (3.5-5.5); Sodium, Blood 138 mmol/L (136-145)
[2023-01-22 07:34] VITALS: BP 101/62
--- NOTE | 2023-01-22 18:40 | NUR ---
SHIFT SUMMARY: FELIX IS A&0X4. VSS, NO ACUTE EVENTS THIS SHIFT. PT REPORTS DECREASE IN DIARRHEA AND IS TOLERATING PO INTAKE WELL. HE IS INDEPENDENT IN THE ROOM, WALKING TO THE BATHROOM. IV FLUIDS INFUSING AT 125 ML/HR. PT HAS DENIED PAIN THIS SHIFT. HE IS LYING IN BED WITH THE CALL LIGHT IN REACH. [facility] REPORT IS GIVEN TO SPECIFICATION CONSULTANT RN.
[2023-01-22 21:04] VITALS: BP 108/62
[2023-01-23 03:50] VITALS: BP 106/61
--- NOTE | 2023-01-23 04:47 | NUR ---
SHIFT SUMMARY FELIX IS ALERT AND FULLY ORIENTEED AT THE START OF SHIFT, HE IS COOPERATIVE AND PLEASANT. NO ACUTE EVENTS TONIGHT, PT IS INDEPENDENT IN THE ROOM AND IS ANTICIPATED TO DISCHARGE TODAY ON DAY SHIFT. HE DENIES PAIN, AND ENDORSES IMPROVEMENT OF DIARRHEA PT CURRENTLY RESTING IN BED WITH CALL LIGHT IN REACH.
[2023-01-23 06:51] LABS: Albumin, Blood 2.5 g/dL (3.4-5.0); Anion Gap 1 mmol/L (6-16); Blood Urea Nitrogen 5 mg/dL (8-24); Bun/Creatinine Ratio 6.1 (12.0-20.0); CO2, Blood 26 mmol/L (21-32); Calcium, Blood 8.1 mg/dL (8.5-10.1); Chloride, Blood 115 mmol/L (98-108); Creatinine, Blood 0.81 mg/dL (0.60-1.20); Glomerular Filtration Rate 117 (60-); Glucose, Blood 101 mg/dL (70-99); Phosphorus, Blood 2.4 mg/dL (2.5-4.9); Sodium, Blood 142 mmol/L (136-145)
[2023-01-23 07:15] LABS: BASOPHILS ABSOLUTE AUTO 0.03 K/mm3 (0.00-0.23); BASOPHILS PERCENT AUTO 0 % (0-2); EOSINOPHILS ABSOLUTE AUTO 0.37 K/mm3 (0.00-0.68); EOSINOPHILS PERCENT AUTO 5 % (0-6); Hematocrit 35.7 % (37.0-53.0); Hemoglobin 11.5 g/dL (13.5-17.5); IMMATURE GRAN ABSOLUTE AUTO 0.04 K/mm3 (0.00-0.10); IMMATURE GRAN PERCENT AUTO 1 % (0-1); LYMPHOCYTES ABSOLUTE AUTO 1.85 K/mm3 (0.84-5.20); LYMPHOCYTES PERCENT AUTO 23 % (21-46); MONOCYTES ABSOLUTE AUTO 0.66 K/mm3 (0.16-1.47); MONOCYTES PERCENT AUTO 8 % (4-13); Mean Corpuscular HGB 27.6 pg (26.0-34.0); Mean Corpuscular HGB Conc 32.2 g/dL (31.5-36.5); Mean Corpuscular Volume 86 fL (80-100); Mean Platelet Volume 10.9 fL (9.1-12.4); NEUTROPHILS ABSOLUTE AUTO 5.23 K/mm3 (1.96-9.15); NEUTROPHILS PERCENT AUTO 64 % (41-73); Platelet Count 169 K/mm3 (150-400); RDW Coefficient Variation 12.7 % (11.7-14.2); RDW Standard Deviation 39.8 fL (35.1-46.3); Red Blood Cell Count 4.16 M/mm3 (4.30-5.90); White Blood Cell Count 8.18 K/mm3 (4.00-11.30)
[2023-01-23 07:44] VITALS: BP 102/59
[2023-01-23] MEDS ORDERED: LACT PO (10:46)
[2023-01-23] MEDS ORDERED: VANCOCIN HCL125 MG PO (10:51)
--- NOTE | 2023-01-23 15:59 | NUR ---
Patient alert & oriented x4. No acute changes to patient status. Plan to DC home with antibiotics. Reviewed discharge education, patient verbalized understanding. Removed IV. Patient left unit at 1315.
== END 2023-01-23 13:36 | disposition home or self-care (01) | DRG 872 ==
LOC: ER 21:52 → MEDS 01-21 03:45 → ENPENDDIS 01-23 10:32 → MEDS 01-23 13:36
PROVIDERS: Student in an Organized Health Care Education/Training Program; ADMIT Internal Medicine
DX: A41.51 Sepsis due to Escherichia coli [E. coli] (principal); A04.72 Enterocolitis due to Clostridium difficile, not specified as recurrent; A04.0 Enteropathogenic Escherichia coli infection; K58.9 Irritable bowel syndrome, unspecified; Z88.5 Allergy status to narcotic agent; Z91.011 Allergy to milk products; Z88.8 Allergy status to other drugs, medicaments and biological substances; Z91.018 Allergy to other foods; Z79.899 Other long term (current) drug therapy; Z98.890 Other specified postprocedural states; Z93.3 Colostomy status
CPT/HCPCS: 36415; 74177; 80053; 80069; 81001; 83605; 85025; 87324; 87507; 93005; 93010; 96361; 96365-59; 96375; 99285-25; A9270; J0696; J1650; J1885; J2270; J2405; J2543; J7030; Q9967

== ENCOUNTER → 2023-01-29 | Outpatient (CLI) | payer OTHER ==
[~2023-01-29] MED LIST changes: +FAMO20 PO; +LACT PO; +OXYB5 PO; +VANCOCIN HCL125 MG PO
[2023-01-29 15:43] LABS: BASOPHILS ABSOLUTE AUTO 0.05 K/mm3 (0.00-0.23); BASOPHILS PERCENT AUTO 1 % (0-2); EOSINOPHILS ABSOLUTE AUTO 0.48 K/mm3 (0.00-0.68); EOSINOPHILS PERCENT AUTO 7 % (0-6); Hematocrit 42.4 % (37.0-53.0); Hemoglobin 13.8 g/dL (13.5-17.5); IMMATURE GRAN ABSOLUTE AUTO 0.14 K/mm3 (0.00-0.10); IMMATURE GRAN PERCENT AUTO 2 % (0-1); LYMPHOCYTES ABSOLUTE AUTO 2.27 K/mm3 (0.84-5.20); LYMPHOCYTES PERCENT AUTO 31 % (21-46); MONOCYTES ABSOLUTE AUTO 0.59 K/mm3 (0.16-1.47); MONOCYTES PERCENT AUTO 8 % (4-13); Mean Corpuscular HGB 27.6 pg (26.0-34.0); Mean Corpuscular HGB Conc 32.5 g/dL (31.5-36.5); Mean Corpuscular Volume 85 fL (80-100); Mean Platelet Volume 11.1 fL (9.1-12.4); NEUTROPHILS ABSOLUTE AUTO 3.76 K/mm3 (1.96-9.15); NEUTROPHILS PERCENT AUTO 52 % (41-73); Platelet Count 298 K/mm3 (150-400); RDW Coefficient Variation 12.4 % (11.7-14.2); RDW Standard Deviation 37.6 fL (35.1-46.3); White Blood Cell Count 7.29 K/mm3 (4.00-11.30)
== END ==
LOC: LAB SHORT 14:26 → LAB 14:26
PROVIDERS: Hospitalist
DX: D50.0 Iron deficiency anemia secondary to blood loss (chronic) (principal)
CPT/HCPCS: 85025

== ENCOUNTER → 2024-10-08 | Outpatient (CLI) | payer OTHER ==
[~2024-10-08] MED LIST changes: +DESV50 PO; +SILD25T PO; +Sertraline HCl50 MG PO
[2024-10-08 13:07] LABS: BASOPHILS ABSOLUTE AUTO 0.06 K/mm3 (0.00-0.23); BASOPHILS PERCENT AUTO 1 % (0-2); EOSINOPHILS ABSOLUTE AUTO 0.33 K/mm3 (0.00-0.68); EOSINOPHILS PERCENT AUTO 5 % (0-6); Hematocrit 39.7 % (37.0-53.0); Hemoglobin 12.7 g/dL (13.5-17.5); IMMATURE GRAN ABSOLUTE AUTO 0.02 K/mm3 (0.00-0.10); IMMATURE GRAN PERCENT AUTO 0 % (0-1); LYMPHOCYTES ABSOLUTE AUTO 1.55 K/mm3 (0.84-5.20); LYMPHOCYTES PERCENT AUTO 23 % (21-46); MONOCYTES ABSOLUTE AUTO 0.63 K/mm3 (0.16-1.47); MONOCYTES PERCENT AUTO 9 % (4-13); Mean Corpuscular HGB Conc 32.0 g/dL (31.5-36.5); Mean Corpuscular Volume 84 fL (80-100); NEUTROPHILS ABSOLUTE AUTO 4.23 K/mm3 (1.96-9.15); NEUTROPHILS PERCENT AUTO 62 % (41-73); NRBC ABSOLUTE 0.00 K/mm3 (0.00-0.02); NRBC Auto 0.0 /100 WBC (0.0-0.2); Platelet Count 256 K/mm3 (150-400); RDW Coefficient Variation 12.8 % (11.7-14.2); RDW Standard Deviation 39.1 fL (35.1-46.3)
== END | disposition home or self-care (01) ==
LOC: LAB 12:02 → LAB SHORT 12:02
PROVIDERS: Hospitalist
DX: D50.0 Iron deficiency anemia secondary to blood loss (chronic) (principal)
CPT/HCPCS: 85025